=== PATIENT | female | born 1990 | race Two or more races ===

== ENCOUNTER 2017-07-31 12:57 | Emergency (ER) | payer OTHER ==
[~2017-07-31] VITALS: Ht 167.6 cm; Wt 185.6 kg
[~2017-07-31 12:57] MED LIST: ADDERALL XR 2020 MG PO; LEXAPRO10 MG PO; MOTRIN600 MG PO; NAPROXEN500 MG PO; ULTRACET1 TABLET PO; VICODIN 5-3001 EACH PO; ZITHROMAX500 MG PO; ZOFRAN4 MG PO
[2017-07-31] MEDS ORDERED: PEN-VEE K,VEET500 MG PO (14:34)
[2017-07-31] MEDS ORDERED: TYLENOL WITH C1 EACH PO (14:34)
[2017-07-31 15:18] VITALS: BP 134/90
== END 2017-07-31 15:18 | disposition home or self-care (01) ==
LOC: EME 12:57
DX: K04.7 Periapical abscess without sinus (principal); R11.0 Nausea; Z72.0 Tobacco use
CPT/HCPCS: 99281; 99283